=== PATIENT | male | born 2000 | race Caucasian/White ===

== ENCOUNTER 2018-09-07 08:20 | Emergency (ER) | payer MEDICAID | END 2018-09-07 10:31 | disposition home or self-care (01) | LOC: FTE 10:31 | DX: M72.2 Plantar fascial fibromatosis (principal) | CPT/HCPCS: 73630; 73630-50; 99284-25 ==

== ENCOUNTER 2018-10-28 09:45 | Emergency (ER) | payer OTHER, MEDICAID ==
[2018-10-28] MEDS: ONDANSETRON (ODT) 4 MG TAB ODT (10:25)
[2018-10-28] MEDS: KETOROLAC 30 MG INJ IM (10:27)
== END 2018-10-28 11:34 | disposition home or self-care (01) ==
LOC: FTE 09:45
DX: R51 Headache (principal)
CPT/HCPCS: 70450; 96372; 99285-25